=== PATIENT | male | born 1945 | race Caucasian/White ===

== ENCOUNTER 2020-05-14 09:44 | Outpatient (RCR) | payer MEDICARE, SELFPAY ==
--- NOTE | 2020-05-14 10:48 | PTOPEVAL ---
Thank you for referring Chong King to [facility].? The patient is scheduled to be seen for therapy? for 2 additional visits. Please review, sign, date and return this plan of care JAMES. I agree with and certify that the following plan of care is medically necessary. Referring Physician Date Admitting Provider: Attending Provider: VIDAL BRISCOE Referring Provider: *PT Outpatient Evaluation Start: 05/14/20 09:53 Freq: Status: Active Protocol: Document 05/14/20 09:54 KATELYN (Rec: 05/14/20 10:47 KATELYN [email or web address]) Therapy Assessment Status Assessment Status Assessment Status Evaluation Evaluation Information Problem Diagnosis BPPV Onset 05/06/20 Subjective Information Pt. reports that he woke in Query Text:As Reported By Patient/ the night with intense Family dizziness. He states that he has had a couple other episodes through the night and day. He states that he is concerned regarding balance and has caught himself stumbling a bit. No recent medication changes. He denies any hx of cardiac issues with exception of high blood pressure. He describes the dizziness as if his head is in the clouds. He reports that his goal is to get rid of his dizziness. Prior Level of Function Activity Level (Last 3 Months) Occupation retired Hand Dominance Right Activity of Daily Living Ability Independent Indoor/Home Mobility Independent Community Mobility Independent Stairs Ability Independent Functional Cognition (Planning, Shopping Independent , Taking Medications) Cooking Yes Cleaning Yes Laundry Yes Shopping Yes Driving Yes Pain Assessment Self Report Self Report Pain Level 0 Pain Score Pain Score 0: Self Report Cervical and Lumbar ROM Cervical ROM Cervical Flexion (0-60) 60 Query Text:Active in Degrees Cervical Extension (0-70) 65 Query Text:Active in Degrees Cervical Lateral Flexion Right (0-50) 40 Query Text:Active in Degrees Cervical Lateral Flexion Left (0-50) 40 Query Text:Active in Degrees Cervical Rotation Right (0-90) 80 Query Text:Active in Degrees
== END 2020-05-18 16:24 | disposition home or self-care (01) ==
LOC: CHSPT 09:44
PROVIDERS: PCP Family Medicine
DX: R42 Dizziness and giddiness (principal)
CPT/HCPCS: 97112; 97161